=== PATIENT | male | born 1950 | race Caucasian/White ===

== ENCOUNTER → 2017-06-18 | Outpatient (CLI) | payer MEDICARE ==
--- NOTE | 2017-06-18 14:29 | REP ---
UNILATERAL RIGHT RIBS/PA CHEST: HISTORY: Chest pain. Small parenchymal nodular densities are present in the lower lobes and left upper lobe. The heart is normal in size. The pulmonary vasculature is normal in appearance. The bony structure is intact. IMPRESSION: There are small parenchymal nodules in the lower lobes and left upper lobe. It cannot be determined if these represent nodules or granuloma. CT of the chest is recommended for further evaluation. Signed by Kranthi Hayes MD 06/18/2017 02:32 P
[2017-06-18 21:27] LABS: BASO # 0.1 K/mm3 (0.0-0.2); BASO % 0.9 % (0.0-1.0); EOS # 0.3 K/mm3 (0.0-0.50); EOS % 4.6 % (0.0-3.0); LARGE UNSTAINED CELL # 0.1 K/mm3 (0.0-0.4); LARGE UNSTAINED CELL % 1.6 % (0.0-4.0); LYMPH # 1.8 K/mm3 (1.5-4.5); LYMPH % 25.2 % (24.0-44.0); MEAN CORPUSCULAR HEMOGLOBIN 35.4 pg (27.0-33.0); MEAN CORPUSCULAR HGB CONC 34.7 g/dl (32.0-36.5); MONO # 0.4 K/mm3 (0.0-0.8); MONO % 6.3 % (0.0-5.0); NEUTROPHILS % 61.4 % (36.0-66.0); PLATELET COUNT, AUTOMATED 186 k/mm3 (150-450); RED CELL DISTRIBUTION WIDTH 12.2 % (11.5-14.5); WHITE BLOOD COUNT 6.5 K/mm3 (4.0-10.0)
[2017-06-18 21:44] LABS: ALBUMIN 4.4 GM/DL (3.2-5.2); ALBUMIN/GLOBULIN RATIO 1.38 (1.00-1.93); BILIRUBIN,DIRECT 0.1 MG/DL (0.0-0.2); BILIRUBIN,TOTAL 0.6 MG/DL (0.2-1.0); TOTAL PROTEIN 7.6 GM/DL (6.4-8.2)
== END ==
LOC: M ADAMS 13:10
PROVIDERS: ATTEND Physician Assistant Medical
DX: R91.8 Other nonspecific abnormal finding of lung field (principal); R07.89 Other chest pain; R59.0 Localized enlarged lymph nodes; R10.10 Upper abdominal pain, unspecified

== ENCOUNTER → 2017-06-21 | Outpatient (CLI) | payer MEDICARE ==
--- NOTE | 2017-06-21 11:32 | REP ---
CT CHEST WITHOUT IV CONTRAST: CT chest is performed without IV contrast. Sagittal and coronal reconstruction images are performed. Correlation made with recent right rib series, 06/18/2017, which showed multiple nodules overlying the lungs. There are multiple calcified pleural plaques bilaterally accounting for the radiographic findings on the recent rib series. No suspicious parenchymal nodule is seen. No significant adenopathy is seen in the chest with multiple subcentimeter mediastinal and hilar lymph nodes present. The heart is normal in size. There is no pleural or pericardial effusion. There are mild degenerative changes of the spine. In the visualized portions of the upper abdomen, there is evidence of fatty infiltration of the liver with a cyst in the right lobe of the liver measuring 1.4 cm in diameter. A few tiny calcified granulomas are seen in the spleen. IMPRESSION: Multiple calcified pleural plaques bilaterally suggesting prior asbestos exposure. No suspicious pulmonary nodule or adenopathy. Fatty infiltration of the liver. Signed by Carlos Cornejo MD 06/21/2017 01:13 P
== END ==
LOC: M RAD 10:28
PROVIDERS: ATTEND Physician Assistant Medical
DX: R91.8 Other nonspecific abnormal finding of lung field (principal); K76.0 Fatty (change of) liver, not elsewhere classified